=== PATIENT | male | born 1995 | race Caucasian/White ===

== ENCOUNTER 2020-12-12 18:58 | Emergency (ER) | payer OTHER ==
[2020-12-13 00:09] LABS: BUN/CREATININE RATIO 7 (0-10)
[2020-12-13 00:24] LABS: HEMOGLOBIN 15.7 gm/dl (14.0-17.5); RED BLOOD COUNT 5.02 M/UL (4.20-5.50)
[2020-12-13] MEDS ORDERED: IBUPROFEN800 MG PO (00:50)
[2020-12-13] MEDS ORDERED: CYCLOBENZAPRINE5 MG PO (00:50)
== END 2020-12-13 01:09 | disposition home or self-care (01) ==
LOC: ER1 18:58
PROVIDERS: Emergency Medicine
DX: S20.219A Contusion of unspecified front wall of thorax, initial encounter (principal); S30.1XXA Contusion of abdominal wall, initial encounter; M79.642 Pain in left hand; V59.49XA Driver of pick-up truck or van injured in collision with other motor vehicles in traffic accident, initial encounter; Y92.410 Unspecified street and highway as the place of occurrence of the external cause
CPT/HCPCS: 71260; 80053; 85025; 86850; 86900; 86901; 99284; Q9967

== ENCOUNTER 2022-04-10 12:08 | Emergency (ER) | payer MEDICARE, OTHER ==
[~2022-04-10 12:08] MED LIST: CYCLOBENZAPRINE5 MG PO; IBUPROFEN800 MG PO
[2022-04-10 13:50] LABS: HEMOGLOBIN 14.9 gm/dl (14.0-17.5); RED BLOOD COUNT 4.71 M/UL (4.20-5.50); WHITE BLOOD COUNT 7.2 K/UL (4.5-11.0)
[2022-04-10 14:14] LABS: BUN/CREATININE RATIO 8 (0-10)
== END 2022-04-10 17:01 | disposition home or self-care (01) ==
LOC: ER1 12:08
PROVIDERS: Physician Assistant
DX: R10.32 Left lower quadrant pain (principal); R10.814 Left lower quadrant abdominal tenderness; Z85.038 Personal history of other malignant neoplasm of large intestine
CPT/HCPCS: 80053; 81001; 83690; 83735; 85025; 87086; 99284; Q9967

== ENCOUNTER → 2022-05-27 | Day surgery (SDC) | payer MEDICARE, OTHER | END | disposition home or self-care (01) | LOC: OR 07:43 | DX: Z12.11 Encounter for screening for malignant neoplasm of colon (principal); G89.29 Other chronic pain; R10.9 Unspecified abdominal pain; K62.1 Rectal polyp; K59.89 Other specified functional intestinal disorders; K64.1 Second degree hemorrhoids; Z86.010 Personal history of colon polyps | CPT/HCPCS: J2250; J7040 ==